=== PATIENT | male | born 1950 ===

== ENCOUNTER 2025-03-09 14:26 | Emergency (ER) | payer SELFPAY ==
[2025-03-09 14:29] VITALS: BP 138/63; PULSE 98; RESP 16; TEMP 37; O2SAT 100
--- NOTE | 2025-03-09 14:45 | PC.NURSE ---
Pt ambulated to intake desk requesting wait time. Pt educated on how we are unable to give out wait times and was advised to refer to the welcome packed. Pt stated he was going to a different facility. Pt ambulated out of ER with steady gait.
== END 2025-03-09 16:07 | disposition left against medical advice (07) ==
LOC: ANHED 15:59
DX: R51.9 Headache, unspecified (principal)
CPT/HCPCS: 99199